=== PATIENT | male | born 1960 | race Two or more races ===

== ENCOUNTER 2023-03-26 17:51 | Emergency (ER) | payer BC, OTHER ==
[~2023-03-26] VITALS: Ht 180.3 cm; Wt 73.0 kg
[2023-03-26 19:42] LABS: Basophils # (auto) 0.1 10 ^3/uL (0-0.2); Basophils % (auto) 0.7 % (0.0-2.0); Eosinophils # (auto) 0.3 10 ^3/uL (0-0.8); Eosinophils % (auto) 3.5 % (0.0-7.0); Hematocrit 45.4 % (41.0-53.0); Lymphocytes # (auto) 2.4 10 ^3/uL (0.4-5.4); Lymphocytes % (auto) 28.5 % (10.0-50.0); Mean Corpuscular Hemoglobin 27.7 pg (28.0-32.0); Mean Corpuscular Volume 84.1 fL (80.0-100.0); Monocytes # (auto) 0.9 10 ^3/uL (0-1.3); Monocytes % (auto) 10.3 % (0.0-12.0); Neutrophils # (auto) 4.9 10 ^3/uL (1.6-8.6); Nucleated Red Blood Cells % 0.3 %; Red Cell Distribution Width 14.6 % (11.8-14.3); White Blood Cell 8.6 10^3/uL (4.4-10.8)
[2023-03-26 19:53] LABS: Acetaminophen < 2.0 UG/ML (10.0-20.0)
[2023-03-26 20:00] LABS: Salicylate < 3.0 mg/dL (2.8-20.0)
[2023-03-26 20:05] LABS: Alanine Aminotransferase 17 U/L (7-40); Albumin 4.5 g/dL (3.2-4.8); Alkaline Phosphatase 70 U/L (46-116); Anion Gap 8 (5-15); Aspartate Aminotransferase 17 U/L (13-40); BUN/Creatinine Ratio 21.3 (10.0-20.0); Blood Urea Nitrogen 17 mg/dL (9-23); Calcium 9.6 mg/dL (8.7-10.4); Carbon Dioxide 28 mmol/L (20-30); Chloride 104 mmol/L (98-107); Glucose 95 mg/dL (74-106); Magnesium 1.9 mg/dL (1.6-2.6); Potassium 4.5 mmol/L (3.5-5.1); Sodium 140 mmol/L (136-145)
[2023-03-26 20:06] LABS: Bilirubin, Total 0.7 mg/dL (0.2-1.0); Total Protein 6.9 g/dL (5.7-8.2)
[2023-03-26 20:30] VITALS: PULSE 94; RESP 16; O2SAT 96
[2023-03-26] MEDS ORDERED: IOHEXOL 350 MG/ML 100ML IJ ONE (20:49)
[2023-03-26 21:12] LABS: Blood Alcohol < 3.0 mg/dL (<10)
[2023-03-27 08:30] VITALS: PULSE 84; RESP 16; O2SAT 98
[2023-03-27 20:45] VITALS: PULSE 82; RESP 18; O2SAT 97
[2023-03-28 08:43] VITALS: PULSE 92; RESP 16; O2SAT 98
[2023-03-28 20:30] VITALS: PULSE 94; RESP 14; O2SAT 96
[2023-03-29 08:00] VITALS: PULSE 78; RESP 16; O2SAT 97
[2023-03-30 07:40] VITALS: PULSE 98; RESP 18; O2SAT 94
[2023-03-30 20:00] VITALS: PULSE 90; RESP 18; O2SAT 97
[2023-03-31 07:45] VITALS: PULSE 87; RESP 16; O2SAT 96
[2023-04-01 09:35] VITALS: PULSE 87; RESP 16; O2SAT 96
[2023-04-01 20:00] VITALS: PULSE 90; RESP 20; O2SAT 95
[2023-04-02 20:30] VITALS: RESP 20; O2SAT 98
[2023-04-03 07:50] VITALS: RESP 20; O2SAT 98
[2023-04-03 19:50] VITALS: RESP 18; O2SAT 99
[2023-04-04 08:20] VITALS: PULSE 77; RESP 19; O2SAT 97
[2023-04-04 11:07] VITALS: PULSE 77; RESP 19; O2SAT 100
[2023-04-05 08:00] VITALS: PULSE 75; RESP 19; O2SAT 97
[2023-04-06] VITALS: PULSE 77; RESP 16; O2SAT 94
[2023-04-06 07:57] VITALS: PULSE 78; RESP 16; O2SAT 96
[2023-04-06] MEDS ORDERED: VITAMINS A & D (TOPICAL) OINT 5GM TOP ONE (10:00)
[2023-04-07 09:38] VITALS: PULSE 82; RESP 20; O2SAT 96
[2023-04-07 18:36] VITALS: BP 102/66; PULSE 82; RESP 18; TEMP 98.1; O2SAT 96
== END 2023-04-06 23:26 | disposition home or self-care (01) ==
LOC: ER 17:51 → EDBD 17:51 → ER 04-06 23:26
DX: F32.9 Major depressive disorder, single episode, unspecified (principal); F79 Unspecified intellectual disabilities; Z86.73 Personal history of transient ischemic attack (TIA), and cerebral infarction without residual deficits
CPT/HCPCS: 36415; 71045; 71275; 80053; 80320; 80329; 83605; 83735; 83880; 84484; 85025; 85379; 87040; 97110; 97116; 97163; 97530; 99285; Q9967